=== PATIENT | female | born 1955 | race African-American/Black ===

== ENCOUNTER 2017-03-01 15:35 | Emergency (ER) | payer MEDICARE, MEDICAID ==
[~2017-03-01] VITALS: Ht 160 cm; Wt 125.0 kg
[~2017-03-01 15:35] MED LIST: ATENOLOL; BYETTA; CLONIDINE; FUROSEMIDE; LEVEMIR; NEXIUM; NOVOLOG
[2017-03-01 16:24] VITALS: BP 146/72
== END 2017-03-01 18:09 | disposition left against medical advice (07) ==
LOC: ER 17:44
DX: H57.9 Unspecified disorder of eye and adnexa (principal); Z53.21 Procedure and treatment not carried out due to patient leaving prior to being seen by health care provider